=== PATIENT | female | born 1995 | race Caucasian/White ===

== ENCOUNTER 2016-12-01 16:47 | Emergency (ER) | payer OTHER ==
[~2016-12-01] VITALS: Ht 149.9 cm; Wt 90.0 kg
[~2016-12-01 16:47] MED LIST: (None)1 % OP; ADVAIR DISK1 IN; ADVAIR DISK2 IN; ALBUTERO1 IN; ALBUTEROL S2.5 MG/.5 IN; ALBUTEROL2.5 MG/3 M IN; AMOXICILLI200 MG/5 M OR; AMOXICILLIN500 MG OR; AUGMENTIN400 MG/5 M OR; AZITHROMYCIN250 MG OR; BACTRIM DS1 TAB OR; BACTRIM DS1 TAB PO; CEPHALEXIN250 M1 OR; CERON-DM OR; CLARITIN5 MG OR; CYCLOBENZAPR10 MG PO; DIAZEPAM5 MG OR; FERROUS SULF325 M2 PO; FLEXERIL OR; FLEXERIL PO; FLEXERIL10 MG PO; FLEXERIL5 M1 OR; FLEXERIL5 MG PO; HOME NEBULIZER; HYDROXYZ HCL25 MG OR; IBUPROFEN600 MG PO; KEFLEX500 MG OR; LORCET OR; LORTAB 5 OR; LORTAB 7.57.5 MG PO; MEDDOSEPAK PO; METRONIDAZOL500 MG PO; MOTRIN400 MG OR; MUPIROCIN2 % EX; NAPROSYN500 MG PO; NO; NO HOME MEDS; ORTHO TRI-CY PO; PERCOCET 5/325M1 TAB OR; PRE-NATAL PO; PREDNISODT15 OR; PREDNISONE10 MG OR; PRILOSEC20 MG/CAP PO; PROAIR HFA IN; SINGULAIR5 MG OR; TORADOL PO; TRAMADOL HCL50 MG PO; TRIAMIN26 OR; TYLENOL & COD12.5 ML OR; TYLENOL325 MG OR; TYLENOL325 MG PO; ULTRAM50 M1 PO; VICODIN1 TAB OR; ZITHROMAX100 MG/5 M OR; ZOFRAN ODT4 MG OR; ZOFRAN ODT4 MG PO; ZOFRAN4 MG/TAB PO; ZPAK PO; augmentin OR
[2016-12-01] MEDS ORDERED: LORTAB 10-325 M1 TAB PO (17:27)
[2016-12-01 17:36] VITALS: BP 112/74
== END 2016-12-01 17:35 | disposition home or self-care (01) | DRG 538 ==
LOC: ED 16:47
DX: S73.102A Unspecified sprain of left hip, initial encounter (principal); M25.552 Pain in left hip; X58.XXXA Exposure to other specified factors, initial encounter

== ENCOUNTER 2017-03-18 16:12 | Emergency (ER) | payer OTHER ==
[~2017-03-18] VITALS: Ht 149.9 cm; Wt 50.0 kg
[~2017-03-18 16:12] MED LIST changes: +LORTAB 10-325 M1 TAB PO
[2017-03-18 17:16] LABS: INFLUENZA A NONE DETECTED (NONE DETECT); INFLUENZA B NONE DETECTED (NONE DETECT)
[2017-03-18] MEDS ORDERED: AFRIN 12 HOUR0.05 % (17:25)
[2017-03-18] MEDS ORDERED: ZOFRAN ODT4 MG PO (17:25)
[2017-03-18 18:00] VITALS: BP 128/87
== END 2017-03-18 18:00 | disposition home or self-care (01) | DRG 866 ==
LOC: ED 16:12
PROVIDERS: Emergency Medicine
DX: B34.9 Viral infection, unspecified (principal); M41.9 Scoliosis, unspecified; J45.909 Unspecified asthma, uncomplicated

== ENCOUNTER 2017-04-18 17:55 | Emergency (ER) | payer OTHER ==
[~2017-04-18] VITALS: Ht 149.9 cm; Wt 44.0 kg
[~2017-04-18 17:55] MED LIST changes: +AFRIN 12 HOUR0.05 %
[2017-04-18] MEDS ORDERED: PERCOCET 5/325M1 TAB PO (19:49)
[2017-04-18] MEDS ORDERED: ORPHENADRINE100 MG PO (19:49)
[2017-04-18 20:00] VITALS: BP 120/60
== END 2017-04-18 20:00 | disposition home or self-care (01) | DRG 552 ==
LOC: ED 17:55
DX: M54.5 Low back pain (principal); S39.92XA Unspecified injury of lower back, initial encounter; W01.0XXA Fall on same level from slipping, tripping and stumbling without subsequent striking against object, initial encounter; Y92.017 Garden or yard in single-family (private) house as the place of occurrence of the external cause

== ENCOUNTER 2017-11-26 05:49 | Day surgery (SDC) | payer OTHER ==
[~2017-11-26] VITALS: Ht 149.9 cm; Wt 40.4 kg
[~2017-11-26 05:49] MED LIST changes: +AMITRIPTYLIN25 MG PO; +BACLOFEN20 MG PO; +CELEBREX200 MG PO; +GABAPENTIN400 M2 PO; +ORPHENADRINE100 MG PO; +PERCOCET 5/325M1 TAB PO
[2017-11-26 07:36] VITALS: BP 113/65
== END 2017-11-26 08:35 | disposition home or self-care (01) | DRG 552 ==
LOC: ORM 05:49
PROVIDERS: ATTEND Anesthesiology Pain Medicine
PROC: 3E0T3BZ Introduction of Anesthetic Agent into Peripheral Nerves and Plexi, Percutaneous Approach (ICD-10-PCS; principal; 2017-11-26)
PROC: 3E0T33Z Introduction of Anti-inflammatory into Peripheral Nerves and Plexi, Percutaneous Approach (ICD-10-PCS; 2017-11-26)
PROC: 3E0T3BZ Introduction of Anesthetic Agent into Peripheral Nerves and Plexi, Percutaneous Approach (ICD-10-PCS; 2017-11-26)
PROC: 3E0T33Z Introduction of Anti-inflammatory into Peripheral Nerves and Plexi, Percutaneous Approach (ICD-10-PCS; 2017-11-26)
DX: M41.85 Other forms of scoliosis, thoracolumbar region (principal); M54.5 Low back pain; M54.6 Pain in thoracic spine

== ENCOUNTER 2018-10-11 19:03 | Emergency (ER) | payer OTHER ==
[~2018-10-11] VITALS: Ht 149.9 cm; Wt 36.4 kg
[2018-10-11] MEDS ORDERED: GABAPENTIN300 M2 PO (19:11)
[2018-10-11] MEDS ORDERED: TRAZODONE50 MG PO (19:12)
[2018-10-11] MEDS ORDERED: VIVLODEX10 MG PO (19:13)
[2018-10-11] MEDS ORDERED: GABAPENTIN600 MG PO (19:48)
[2018-10-11] MEDS ORDERED: MELOXICAM7.5 MG PO (19:48)
[2018-10-11] MEDS ORDERED: TAM75CAP PO (20:20)
[2018-10-11 20:30] VITALS: BP 124/82
== END 2018-10-11 20:30 | disposition home or self-care (01) ==
LOC: ED 19:03
DX: J10.1 Influenza due to other identified influenza virus with other respiratory manifestations (principal); F17.200 Nicotine dependence, unspecified, uncomplicated

== ENCOUNTER 2018-11-12 21:53 | Emergency (ER) | payer OTHER ==
[~2018-11-12] VITALS: Ht 149.9 cm; Wt 45.4 kg
[~2018-11-12 21:53] MED LIST changes: +GABAPENTIN300 M2 PO; +GABAPENTIN600 MG PO; +MELOXICAM7.5 MG PO; +TAM75CAP PO; +TRAZODONE50 MG PO; +VIVLODEX10 MG PO
[2018-11-12 23:17] LABS: COCAINE NEGATIVE (NEGATIVE)
[2018-11-12 23:18] LABS: BARBITURATES NEGATIVE (NEGATIVE); METHADONE NEGATIVE (NEGATIVE); OXCYCODONE NEGATIVE (NEGATIVE); TETRAHYDROCANNABIONOL NEGATIVE (NEGATIVE); TRICYLIC ANTIDEPRESSANTS NEGATIVE (NEGATIVE)
[2018-11-13 00:26] VITALS: BP 121/74
== END 2018-11-13 00:32 | disposition home or self-care (01) ==
LOC: ED 21:53
PROVIDERS: Emergency Medicine
DX: R51 Headache (principal); F17.200 Nicotine dependence, unspecified, uncomplicated

== ENCOUNTER 2019-09-29 | Emergency (ER) | payer OTHER ==
[2019-09-29] MEDS ORDERED: VOLTAREN - GENE75 MG PO ×2 (12:46)
== END 2019-09-29 13:03 | disposition home or self-care (01) ==
DX: S29.011A Strain of muscle and tendon of front wall of thorax, initial encounter (principal); F17.200 Nicotine dependence, unspecified, uncomplicated; W19.XXXA Unspecified fall, initial encounter

== ENCOUNTER 2020-02-28 12:03 | Emergency (ER) | payer OTHER ==
[~2020-02-28] VITALS: Ht 149.9 cm; Wt 54.5 kg
[~2020-02-28 12:03] MED LIST changes: +VOLTAREN - GENE75 MG PO
[2020-02-28] MEDS ORDERED: PRE-NATAL PO (12:25)
[2020-02-28 14:04] LABS: URINE BILIRUBIN - DIPSTICK NEGATIVE (NEGATIVE); URINE BLOOD DIPSTICK NEGATIVE (NEGATIVE); URINE COLOR YELLOW; URINE GLUCOSE - DIPSTICK NEGATIVE (NEGATIVE); URINE KETONE NEGATIVE (NEGATIVE); URINE LEUK ESTERASE NEGATIVE (NEGATIVE); URINE NITRITE - DIPSTICK NEGATIVE (Negative); URINE PROTEIN - DIPSTICK NEGATIVE (NEG-TRACE); URINE UROBILINOGEN - DIPSTICK 0.2 E.U./dL (0.2)
[2020-02-28] MEDS ORDERED: AMOXICILLIN875 MG PO (14:14)
[2020-02-28 14:16] VITALS: BP 110/69
== END 2020-02-28 14:16 | disposition home or self-care (01) ==
LOC: ED 12:03
DX: J02.0 Streptococcal pharyngitis (principal); J45.909 Unspecified asthma, uncomplicated; F17.200 Nicotine dependence, unspecified, uncomplicated; Z20.828 Contact with and (suspected) exposure to other viral communicable diseases

== ENCOUNTER 2022-03-12 17:26 | Emergency (ER) | payer OTHER ==
[~2022-03-12] VITALS: Ht 149.9 cm; Wt 40.0 kg
[~2022-03-12 17:26] MED LIST changes: +AMOXICILLIN875 MG PO
[2022-03-12 18:09] VITALS: BP 121/81
[2022-03-12 18:18] LABS: HEMATOCRIT 43.5 % (37.0-47.0); HEMOGLOBIN 14.7 g/dl (12.0-16.0); IMMATURE GRANULOCYTES 0.1 % (0.0-5.0); MEAN CELL VOLUME 89.1 fL CALC (80.0-100.0); MEAN CORPUSCULAR HGB 30.1 pG CALC (26.0-32.0); MEAN CORPUSCULAR HGB CONC 33.8 g/dL CAL (32.0-36.0); NEUT# 13.97 thou/uL (2.00-7.15); RED BLOOD COUNT 4.88 mill/uL (4.20-5.60); RED CELL DISTRI WIDTH 13.6 % (11.5-15.5)
[2022-03-12 18:23] LABS: URINE BILIRUBIN - DIPSTICK NEGATIVE (NEGATIVE); URINE BLOOD DIPSTICK TRACE-INTACT (NEGATIVE); URINE COLOR YELLOW; URINE GLUCOSE - DIPSTICK NEGATIVE (NEGATIVE); URINE KETONE 40 mg/dL (NEGATIVE); URINE LEUK ESTERASE NEGATIVE (NEGATIVE); URINE PH 5.5 (4.5-8.0); URINE PROTEIN - DIPSTICK NEGATIVE (NEG-TRACE); URINE SPECIFIC GRAVITY >=1.030; URINE UROBILINOGEN - DIPSTICK 0.2 E.U./dL (0.2)
[2022-03-12 18:30] VITALS: BP 92/58
[2022-03-12 18:32] LABS: URINE NITRITE - DIPSTICK NEGATIVE (Negative)
[2022-03-12 18:34] LABS: ALBUMIN 4.6 g/dL (3.2-5.0); ALKALINE PHOSPHATASE 51 u/l (38-126); ANION GAP 15 (6-22 (CALC)); BUN 22 mg/dL (7-17); BUN/CREATININE RATIO 43 (12-20 (CALC)); CARBON DIOXIDE 23 mmol/l (22-30); CHLORIDE 102 mmol/l (95-108); CREATININE 0.5 mg/dL (0.5-1.0); GFR FOR AFR.AMER. > 60 ML/MIN (>=60 (CALC)); GFR OTHER RACES > 60 ML/MIN (>=60 (CALC)); LIPASE 37 u/l (23-300); POTASSIUM 4.3 mmol/l (3.5-5.1); SGOT/AST 25 u/l (14-36); SODIUM 136 mmol/l (137-146); TOTAL PROTEIN 7.7 g/dL (6.3-8.2)
[2022-03-12 18:35] LABS: BILIRUBIN, TOTAL 0.5 mg/dL (0.0-1.4)
[2022-03-12 18:50] VITALS: BP 98/64
[2022-03-12 19:00] VITALS: BP 94/58
[2022-03-12] MEDS ORDERED: ONDANSETRON4 MG PO (19:26)
[2022-03-12 19:30] VITALS: BP 92/57
[2022-03-12] MEDS ORDERED: CIPROFLOXACN500 MG PO (20:02)
[2022-03-12 20:25] VITALS: BP 100/63
== END 2022-03-12 20:43 | disposition home or self-care (01) ==
LOC: ED 17:26
PROVIDERS: Nurse Practitioner
DX: K52.9 Noninfective gastroenteritis and colitis, unspecified (principal); R51.9 Headache, unspecified; K59.00 Constipation, unspecified; J45.909 Unspecified asthma, uncomplicated; F17.200 Nicotine dependence, unspecified, uncomplicated; Z20.822 Contact with and (suspected) exposure to COVID-19

== ENCOUNTER 2022-07-26 11:23 | Emergency (ER) | payer OTHER ==
[~2022-07-26] VITALS: Ht 149.9 cm; Wt 41.8 kg
[2022-07-26] VITALS (8 sets, daily range): BP systolic 94–119; BP diastolic 58–78
[~2022-07-26 11:23] MED LIST changes: +CIPROFLOXACN500 MG PO; +ONDANSETRON4 MG PO
[2022-07-26 12:19] LABS: BASO% 0.2 % (0-3); EOS% 0.6 % (0-8); HEMATOCRIT 41.4 % (37.0-47.0); HEMOGLOBIN 13.8 g/dl (12.0-16.0); IMMATURE GRANULOCYTES 0.1 % (0.0-5.0); LYMPH% 16.4 % (15-41); MEAN CELL VOLUME 92.6 fL CALC (80.0-100.0); MEAN CORPUSCULAR HGB 30.9 pG CALC (26.0-32.0); MEAN CORPUSCULAR HGB CONC 33.3 g/dL CAL (32.0-36.0); MONO% 6.4 % (2-13); NEUT# 9.97 thou/uL (2.00-7.15); NEUT% 76.3 % (42-76); RED BLOOD COUNT 4.47 mill/uL (4.20-5.60); RED CELL DISTRI WIDTH 14.1 % (11.5-15.5); URINE BILIRUBIN - DIPSTICK NEGATIVE (NEGATIVE); URINE BLOOD DIPSTICK LARGE (NEGATIVE); URINE COLOR YELLOW; URINE GLUCOSE - DIPSTICK NEGATIVE (NEGATIVE); URINE KETONE NEGATIVE (NEGATIVE); URINE PH 6.5 (4.5-8.0); URINE PROTEIN - DIPSTICK TRACE mg/dL (NEG-TRACE); URINE UROBILINOGEN - DIPSTICK 0.2 E.U./dL (0.2)
[2022-07-26 12:21] LABS: URINE BACTERIA MODERATE hpf; URINE EPITHELIAL CELLS MODERATE EPI/hpf (0-FEW); URINE LEUK ESTERASE SMALL (NEGATIVE); URINE NITRITE - DIPSTICK NEGATIVE (Negative); URINE WBC 20-50 WBC/hpf (0-5)
[2022-07-26 12:46] LABS: ALBUMIN 4.6 g/dL (3.2-5.0); ALKALINE PHOSPHATASE 46 u/l (38-126); ANION GAP 9 (6-22 (CALC)); BILIRUBIN, TOTAL 0.3 mg/dL (0.0-1.4); BUN 16 mg/dL (7-17); BUN/CREATININE RATIO 28 (12-20 (CALC)); CARBON DIOXIDE 28 mmol/l (22-30); CHLORIDE 106 mmol/l (95-108); CREATININE 0.6 mg/dL (0.5-1.0); GFR FOR AFR.AMER. > 60 ML/MIN (>=60 (CALC)); GFR OTHER RACES > 60 ML/MIN (>=60 (CALC)); POTASSIUM 3.9 mmol/l (3.5-5.1); SGOT/AST 27 u/l (14-36); SODIUM 139 mmol/l (137-146); TOTAL PROTEIN 7.5 g/dL (6.3-8.2)
[2022-07-26] MEDS ORDERED: LEVAQUIN750 M1 PO (15:04)
== END 2022-07-26 15:37 | disposition home or self-care (01) ==
LOC: ED 11:23
PROVIDERS: Emergency Medicine
DX: J18.9 Pneumonia, unspecified organism (principal); R30.0 Dysuria; J45.909 Unspecified asthma, uncomplicated; F17.210 Nicotine dependence, cigarettes, uncomplicated

== ENCOUNTER 2022-10-27 12:33 | Emergency (ER) | payer OTHER ==
[2022-10-27] VITALS (10 sets, daily range): BP systolic 102–126; BP diastolic 72–84
[~2022-10-27] VITALS: Ht 149.9 cm; Wt 41.0 kg
[~2022-10-27 12:33] MED LIST changes: +LEVAQUIN750 M1 PO
[2022-10-27 13:45] LABS: URINE BILIRUBIN - DIPSTICK NEGATIVE (NEGATIVE); URINE BLOOD DIPSTICK NEGATIVE (NEGATIVE); URINE COLOR YELLOW; URINE GLUCOSE - DIPSTICK NEGATIVE (NEGATIVE); URINE KETONE NEGATIVE (NEGATIVE); URINE LEUK ESTERASE NEGATIVE (NEGATIVE); URINE NITRITE - DIPSTICK NEGATIVE (Negative); URINE PROTEIN - DIPSTICK NEGATIVE (NEG-TRACE); URINE SPECIFIC GRAVITY 1.015; URINE UROBILINOGEN - DIPSTICK 0.2 E.U./dL (0.2)
== END 2022-10-27 17:46 | disposition home or self-care (01) ==
LOC: ED 12:33
PROVIDERS: Emergency Medicine
DX: R10.32 Left lower quadrant pain (principal); N85.8 Other specified noninflammatory disorders of uterus; F17.210 Nicotine dependence, cigarettes, uncomplicated